=== PATIENT | female | born 1995 | race Caucasian/White ===

== ENCOUNTER 2017-03-11 20:54 | Emergency (ER) | payer MEDICAID ==
[2017-03-11 20:57] VITALS: BMI 33.6
[2017-03-11] MEDS ORDERED: Sodium Chloride 0.9% 1,000 ML IV STA (21:27)
--- NOTE | 2017-03-11 21:43 | ED PDOC ---
HPI: Abdomen History Per: Patient <Lennox Bartholomew - Last Filed: 03/11/17 23:56> <Whit Bryant - Last Filed: 03/13/17 14:13> Time Seen by Provider: 03/11/17 21:15 Chief Complaint (Nursing): Abdominal Pain Additional Complaint(s): 21 year old patient with a PMHx of Depression presents to ED with a 1 week history of abdominal pain associated with N/V/D. Patient reports that abdominal pain started last sunday and has been worsening ranulfo. Describes abdominal pain as sharp, 7/10 in intensity, localized to RLQ with radiation to epigastric region, exacerbated with lifting heavy objects and not alleviated with Ibuprofen 600mg. Diarrhea started as watery with 4-5 episodes daily but patient has been noticing millie blood, 1-2 tablespoons, in her stool. Vomit was undigested food and yellow fluid with no millie blood or /coffee ground emesis. Patient denies fever but reports feeling chills all week. Denies urinary changes , back pain, sick contacts, recent travel, or vaginal bleeding. Decreased appetite but has been tolerating diet and fluids. (Lennox Bartholomew) Supervising Attending Note <Lennox Bartholomew - Last Filed: 03/11/17 23:56> - Supervising Attending Note The Documented history was done by the: Physician Negative Cleaner, Attending Physician The documented physical exam was done by the: Physician Negative Cleaner, Attending Physician - Attestation: I have personally seen and examined this patient.: Yes I have fully participated in the care of the patient.: Yes I have reviewed all pertinent clinical information: Yes <Whit Bryant - Last Filed: 03/13/17 14:13> - Notes: Notes:: RLQ pain with signs of ruptured ovarian cyst and no appendicitis on CT. [place] better spontenously during ER stay. Stable for dc. (Whit Bryant) Past Medical History Reviewed: Historical Data, Nursing Documentation, Vital Signs - Medical History PMH: Anemia - Surgical History Surgical History: No Surg Hx Denies: Appendectomy - Family History Family History: Denies: No Known Family Hx - Living Arrangements Living Arrangements: With Family - Social History Current smoker - smoking cessation education provided: No Alcohol: < 2 Drinks/Day <Lennox Bartholomew - Last Filed: 03/11/17 23:56> <Whit Bryant - Last Filed: 03/13/17 14:13> Vital Signs: Last Vital Signs Temp 97.9 F 03/12/17 00:01 Pulse 81 03/12/17 00:01 Resp 17 03/12/17 00:01 BP 119/66 03/12/17 00:01 Pulse Ox 100 03/12/17 00:01 - Home Medications Home Medications: Ambulatory Orders Medication Instructions Recorded Nitrofurantoin Macrocrystals 100 mg PO BID #14 cap 02/25/15 [Macrobid] Ondansetron [Zofran] 4 mg PO Q8H #12 tab 02/25/15 Sertraline HCl [Zoloft] 03/02/15 Ibuprofen [Motrin Tab] 600 mg PO Q8 PRN #60 tab 03/11/17 - Allergies Allergies/Adverse Reactions: Allergies Allergy/AdvReac Type Severity Reaction Status Date / Time shrimp Allergy RASH Verified 03/11/17 20:57 Sulfa (Sulfonamide Allergy RASH Verified 03/11/17 20:57 Antibiotics) Review of Systems Constitutional: Negative for: Chills Cardiovascular: Negative for: Chest Pain, Palpitations Respiratory: Negative for: Cough Gastrointestinal: Positive for: Nausea, Vomiting, Abdominal Pain, Diarrhea, Hematochezia. Negative for: Constipation, Melena, Hematemesis, Rectal Pain Genitourinary Female: Negative for: Dysuria, Frequency Psych: Negative for: Anxiety, Depression <Lennox Bartholomew - Last Filed: 03/11/17 23:56> Physical Exam - Reviewed Vital Signs Reviewed: Yes - Physical Exam Appears: Positive for: Well, Non-toxic, No Acute Distress Skin: Positive for: Normal Color. Negative for: Diaphoresis, Pallor Neck: Positive for: Supple Cardiovascular/Chest: Positive for: Regular Rate, Rhythm Respiratory: Positive for: Normal Breath Sounds. Negative for: Accessory Muscle Use, Crackles, Wheezing Pulses-Dorsalis Pedis (L): 2+ Pulses-Dorsalis Pedis (R): 2+ Pulses-Radial (L): 2+ Pulses-Radial (R): 2+ Gastrointestinal/Abdominal: Positive for: Bowel Sounds, Soft, Tenderness ( Tenderness in RLQ, Psoas sign positive, Negative rebound tenderness). Negative for: Organomegaly, Mass, Distended, Guarding, Rebound, Hernia Back: Negative for: L CVA Tenderness, R CVA Tenderness <Lennox Bartholomew - Last Filed: 03/11/17 23:56> - Laboratory Results Result Diagrams: 03/11/17 21:48 03/11/17 21:48 - ECG O2 Sat by Pulse Oximetry: 99 <Lennox Bartholomew - Last Filed: 03/11/17 23:56> - Laboratory Results Result Diagrams: 03/11/17 21:48 03/11/17 21:48 <Whit Bryant - Last Filed: 03/13/17 14:13> Medical Decision Making <Lennox Bartholomew - Last Filed: 03/11/17 23:56> <Whit Bryant - Last Filed: 03/13/17 14:13> Medical Decision Makin21 y/o female presents to ED with 1 week hx of abdominal pain associated with n/ v and bloody diarrhea. ED Course: Morphine 4mg x1 Zofran 8mg IV x1 Protonix 40mg IV x1 IV hydration, Normal Saline CBC CMP Lipase U/A Urine FOBT Plan: Labs normal Pt's Pain resolved spontaneously Abdominal CT showed R. Ovarian cyst rupture. Reviewed results with patient. Advised to follow up with PMD and [facility] Outpatient. RX given for Ibuprofen to manage pain. ER precautions given. Patient requested documents of abdominal CT report, report was reviewed and given. (Lennox Bartholomew) Disposition - Patient ED Disposition Is Patient to be Admitted: No Discussed With Dr.: Whit Bryant Doctor Will See Patient In The: Office Counseled Patient/Family Regarding: Studies Performed, Diagnosis, Need For Followup, Rx Given - Disposition Disposition: Routine/Home Disposition Time: 23:51 <Lennox Bartholomew - Last Filed: 03/11/17 23:56> <Whit Bryant - Last Filed: 03/13/17 14:13> - Clinical Impression Clinical Impression: Ovarian cyst rupture - Disposition Condition: FAIR Prescriptions: Ibuprofen [Motrin Tab] 600 mg PO Q8 PRN #60 tab PRN Reason: Pain, Moderate (4-7) Instructions: Ovarian Cyst (ED) Forms: [employer] (Kosovan), [facility] ED School/Work Excuse
[2017-03-11 21:57] LABS: BASO # 0.1 K/uL (0.0-0.2); BASO % 0.7 % (0.0-2.0); EOS % 0.2 % (0.0-4.0); HEMATOCRIT 37.6 % (34.0-47.0); LYMPH % 19.7 % (20.0-40.0); MEAN CELL VOLUME 83.1 fl (81.0-99.0); MEAN CORPUSCULAR HEMOGLOBIN 26.4 pg (27.0-31.0); MEAN CORPUSCULAR HGB CONC 31.7 g/dL (33.0-37.0); MEAN PLATELET VOLUME 8.4 fl (7.2-11.7); MONO # 0.5 K/uL (0.0-0.8); MONO % 5.1 % (0.0-10.0); NEUT # 7.5 K/uL (1.8-7.0); NEUT % 74.3 % (50.0-75.0); RED CELL DISTRIBUTION WIDTH 13.1 % (11.5-14.5); WHITE BLOOD COUNT 10.1 K/uL (4.8-10.8)
[2017-03-11 22:10] LABS: ALB/GLOB RATIO 1.3 (1.0-2.1); ALKALINE PHOSPHATASE 92 U/L (38-126); ALT/SGPT 40 U/L (9-52); AST/SGOT 37 U/L (14-36); BILIRUBIN,TOTAL 0.9 mg/dl (0.2-1.3); BLOOD UREA NITROGEN 12 mg/dl (7-17); CALCIUM 9.3 mg/dL (8.4-10.2); CARBON DIOXIDE 24 mmol/L (22-30); CHLORIDE 105 mmol/L (98-107); GFR AFRICAN-AMERICAN > 60; GLUCOSE,RANDOM 95 mg/dL (65-105); LIPASE 64 U/L (23-300); POTASSIUM 4.6 MMOL/L (3.6-5.0); SODIUM 140 mmol/l (132-148)
[2017-03-11 22:13] LABS: PARTIAL THROMBOPLASTIN TIME 30.9 Seconds (25.6-37.1)
[2017-03-11] MEDS ORDERED: Iohexol 300 100 ML IJ ONE (22:14)
--- NOTE | 2017-03-11 23:28 | CT ---
EXAM: CT Abdomen and Pelvis With Intravenous Contrast CLINICAL HISTORY: 21 years old, female; Pain; Abdominal pain; Acute; Additional info: Rlq pain R/O appy TECHNIQUE: Axial computed tomography images of the abdomen and pelvis with intravenous contrast. All CT scans at this facility use one or more dose reduction techniques, viz.: automated exposure control; ma/kV adjustment per patient size (including targeted exams where dose is matched to indication; i.e. head); or iterative reconstruction technique. Coronal and sagittal reformatted images were created and reviewed. CONTRAST: 95 mL of omnipaque 300 administered intravenously. COMPARISON: US - OB TRANSVAGINAL 2015-03-04 12:03 FINDINGS: Lower thorax: No acute findings. ABDOMEN: Liver: No acute abnormality as visualized. No mass. Gallbladder and bile ducts: No acute abnormality as visualized. Pancreas: No acute abnormality as visualized. Spleen: No splenomegaly. Adrenals: No acute abnormality as visualized. Kidneys and ureters: No acute abnormality as visualized. No hydronephrosis. Stomach and bowel: Limited evaluation without enteric contrast. No obstruction. Appendix: No findings to suggest acute appendicitis. PELVIS: Bladder: No acute abnormality as visualized. Reproductive: Approximately 2 cm focus of increased attenuation in region of right adnexa with surrounding fluid of somewhat increased attenuation. Appearance most suggestive of a ruptured ovarian cyst with hemorrhage. Followup evaluation can be performed with ultrasound. Retroverted uterus. ABDOMEN and PELVIS: Intraperitoneal space: No free air. Bones: No acute fracture. Vasculature: No abdominal aortic aneurysm. Lymph nodes: No acute abnormality as visualized. IMPRESSION: Approximately 2 cm focus of increased attenuation in region of right adnexa with surrounding fluid of somewhat increased attenuation. Appearance most suggestive of a ruptured ovarian cyst with hemorrhage. Followup evaluation can be performed with ultrasound.
[2017-03-12 00:02] VITALS: BP 119/66; PULSE 81; RESP 17; TEMP 97.9; O2SAT 100
== END 2017-03-11 23:58 | disposition home or self-care (01) ==
LOC: H.ER 20:54
DX: N83.209 Unspecified ovarian cyst, unspecified side (principal)
CPT/HCPCS: 74177; 80053; 81025; 83690; 85025; 85610; 85730; 86850; 86900; 96361; 96374; 96375; 99283; C9113; J2405; J7040; Q9967

== ENCOUNTER 2017-07-25 21:08 | Inpatient (IN) | payer MEDICAID ==
[2017-07-25 21:09] VITALS: BMI 32.3
--- NOTE | 2017-07-25 22:41 | ED PDOC ---
HPI: Psych/Substance Abuse Time Seen by Provider: 07/25/17 21:26 Chief Complaint (Nursing): Psychiatric Evaluation History Per: Patient Additional Complaint(s): Pt. states for the past 2 weeks she's had suicidal thoughts but no plan. States that she was seen in by a Psychiatric PA today who prescribed her Fluoxetine and advised her to come to ED but she refused and wanted to go home instead. Pt' s mother states at home pt. began crying again. Pt. states she recently ended a 4 year romantic relationship. Denies HI, hallucinations. Past Medical History Reviewed: Historical Data, Nursing Documentation, Vital Signs Vital Signs: Last Vital Signs Temp 98.0 F 07/25/17 21: Pulse 88 07/25/17 21:22 Resp 16 07/25/17 21:22 BP 108/68 07/25/17 21:22 Pulse Ox 98 07/25/17 21:22 - Medical History PMH: Anemia, Depression Denies: Diabetes, Hepatitis, HIV, HTN, Chronic Kidney Disease, Seizures, Sexually Transmitted Disease - Surgical History Surgical History: Endoscopy Denies: Appendectomy - Family History Family History: States: No Known Family Hx - Immunization History Hx Tetanus Toxoid Vaccination: No Hx Influenza Vaccination: No Hx Pneumococcal Vaccination: No - Home Medications Home Medications: Ambulatory Orders Medication Instructions Recorded Methylprednisolone Acetate 20 mg IJ 07/25/17 [Depo-Medrol] - Allergies Allergies/Adverse Reactions: Allergies Allergy/AdvReac Type Severity Reaction Status Date / Time pollen extracts Allergy SHORTNESS Verified 07/25/17 21:20 OF BREATH shellfish derived Allergy ANAPHYLAXIS Verified 07/25/17 21:20 shrimp Allergy RASH Verified 07/25/17 21:20 Sulfa (Sulfonamide Allergy RASH Verified 07/25/17 21:20 Antibiotics) Review of Systems ROS Statement: Except As Marked, All Systems Reviewed And Found Negative Psych: Positive for: Depression, Suicidal ideation Physical Exam - Reviewed Nursing Documentation Reviewed: Yes Vital Signs Reviewed: Yes - Physical Exam Appears: Positive for: Well, Non-toxic, No Acute Distress Head Exam: Positive for: ATRAUMATIC, NORMAL INSPECTION, NORMOCEPHALIC Skin: Positive for: Normal Color, Warm. Negative for: Rash Eye Exam: Positive for: EOMI, Normal appearance, PERRL ENT: Positive for: Normal ENT Inspection Neck: Positive for: Normal, Painless ROM Cardiovascular/Chest: Positive for: Regular Rate, Rhythm Respiratory: Positive for: CNT, Normal Breath Sounds Gastrointestinal/Abdominal: Positive for: Normal Exam, Soft. Negative for: Tenderness Back: Positive for: Normal Inspection Extremity: Positive for: Normal ROM Neurologic/Psych: Positive for: Alert, Oriented, Mood/Affect (calm, cooperative) - Laboratory Results Result Diagrams: 07/25/17 23:13 07/25/17 23:13 - ECG O2 Sat by Pulse Oximetry: 98 - Progress ED Course And Treament: Crisis eval ordered. Pt. placed on 1:1. Pt. evaluated by [facility] rider ticket worker, who spoke with Dr. Joy and arrangements made for admission. Labs ordered. Disposition - Clinical Impression Clinical Impression: Depression - Patient ED Disposition Is Patient to be Admitted: Yes - Disposition Disposition: Routine/Home Disposition Time: 23:01 Condition: STABLE Forms: [facility] (Mongolian)
[2017-07-25 23:17] LABS: BASO # 0.1 K/uL (0.0-0.2); BASO % 0.5 % (0.0-2.0); EOS % 0.3 % (0.0-4.0); HEMOGLOBIN 11.7 g/dL (12.0-16.0); LYMPH # 2.1 K/uL (1.0-4.3); LYMPH % 18.5 % (20.0-40.0); MEAN CELL VOLUME 81.3 fl (81.0-99.0); MEAN CORPUSCULAR HGB CONC 31.9 g/dL (33.0-37.0); MEAN PLATELET VOLUME 8.4 fl (7.2-11.7); MONO # 0.5 K/uL (0.0-0.8); MONO % 4.2 % (0.0-10.0); NEUT # 8.8 K/uL (1.8-7.0); NEUT % 76.5 % (50.0-75.0); RBC 4.5 Mil/uL (3.80-5.20); RED CELL DISTRIBUTION WIDTH 14.5 % (11.5-14.5); WHITE BLOOD COUNT 11.5 K/uL (4.8-10.8)
[2017-07-25 23:27] LABS: ALB/GLOB RATIO 1.1 (1.0-2.1); ALBUMIN 4.4 g/dL (3.5-5.0); ALT/SGPT 34 U/L (9-52); AST/SGOT 21 U/L (14-36); BLOOD UREA NITROGEN 9 mg/dl (7-17); CALCIUM 9.6 mg/dL (8.4-10.2); GFR AFRICAN-AMERICAN > 60; GFR NON-AFRICAN AMERICAN > 60
[2017-07-25 23:29] LABS: SQUAMOUS EPITHIAL 13 /hpf (0-5); URINE BACTERIA RARE (<OCC); URINE BILIRUBIN NEGATIVE (NEGATIVE); URINE BLOOD NEGATIVE (NEGATIVE); URINE CLARITY CLOUDY (Clear); URINE COLOR YELLOW (YELLOW); URINE GLUCOSE (UA) NEG (Normal); URINE LEUKOCYTE ESTERASE NEG Leu/uL (Negative); URINE PROTEIN NEGATIVE (NEGATIVE); URINE UROBILINOGEN 0.2-1.0 mg/dL (0.2-1.0)
[2017-07-25 23:35] LABS: BARBITURATES, UR NEGATIVE (NEGATIVE); BENZODIAZEPINES, UR POSITIVE (NEGATIVE); OPIATES, UR NEGATIVE (NEGATIVE); PHENCYCLIDINE, UR NEGATIVE (NEGATIVE)
[2017-07-26 00:14] VITALS: O2SAT 99
[2017-07-26] MEDS ORDERED: Magnesium Hydroxide Susp 30 ml UD PO PRN (00:43)
[2017-07-26] MEDS ORDERED: Alum-Mag Hydrox-Simethicone Susp (30 mL) PO PRN (00:43)
[2017-07-26] MEDS ORDERED: DiphenhydrAMINE 50 mg/ml Inj IM PRN (00:43)
--- NOTE | 2017-07-26 01:23 | PCM.BM ---
<Carlos Krueger P - Last Filed: 07/26/17 01:21> Treatment Plan Problems - Problems identified on initial assessmt Hopelessness/Helplessness Date Initiated: 07/26/17 Time Initiated: 01:21 Assessment reference: NA Status: Active Altered Sleep Patterns Date Initiated: 07/26/17 Time Initiated: 01:21 Assessment reference: NA Status: Active Treatment assets and liabiliti Patient Assests: cooperative, educated, ADL independent, physically healthy, good support system, negotiates basic needs, cognitively intact, good interpersonal skills Patient Liabilities: relationship conflicts - Milieu Protocol Maintain good personal hygiene: daily Encourage regular showers, daily Remind patient to perform daily oral care, daily Assist patient to perform ADL's Conduct patient checks and document Observation sheet: Q15 minutes Maintain personal safety: every shift Educate patient to report safety concerns to staff, every shift Monitor environment for contraband/sharps Medication safety: Monitor for expected outcome, potential side effects: every shift, Assess barriers to learning: every shift, Assess readiness for medication education: every shift <Jone Muniz J - Last Filed: 07/27/17 16:24> Family Contact Family involvement: Family/SO is involved Family contact: Patient agrees to contact, Family has been contacted by patient Family contact name: Jairo Mcknight (Mother) - [phone] Family contacted how many times per week?: 2 - Goals for Treatment Patient goals for treatment: Pt reported she would like to feel less anxious and depressed and have her intrusive thoughts resolved. Discharge/Continuing Care - Education Needs Education Needs: Patient Medication, Patient Diagnosis/Disease Process, Patient Coping Skills, Patient Aftercare Safety Plan - Discharge Discharge Criteria: Tolerates medication w/o severe side effects, Free of Suicidal thoughts, Free of agitation, Normal sleep pattern, Ability to care for self, Reduction of target symptoms Discharge to:: Home, With Family - Additional Comments 07/27/17 16:21 Pt reported that she has been restless with bone pain. Pt spoke about numerous somatic symptoms such as pain, upset stomach. Pt reported that she would not be able to contract for safety off of the unit. Pt reported she has been experiencing Auditory Hallucinations yet had not mentioned these to intake or unit staff until this AM. Medications were explained and Dr. Lazo plans to titrate up Abilify to 5mg today and 10mg tomorrow as long as no side effects are seen. Pt remained tearful during treatment team. - Treatment Team Participation Discussed with Family/SO: No Was Patient/Family/SO present at Treatment Team Meeting: Yes <Chrystal Lazo - Last Filed: 07/31/17 13:07> - Diagnosis (1) Depression Status: Acute Interventions: psychotherapy, pharmacotherapy 07/26/17 13:42
[2017-07-26 07:37] LABS: T4 9.3 ug/dl (5.5-11.0)
--- NOTE | 2017-07-26 07:56 | CP.PCM.HP ---
History of Present Illness - History of Present Illness History of Present Illness: admitted for depression/si. states hears a voice that tells her she is not worth it. no active suicidal intentions. no medical complaints. no f/c, n/v/ d.bw and imaging noted Present on Admission - Present on Admission Any Indicators Present on Admission: No Review of Systems - Psychiatric Psychiatric: As Per HPI, Depression, Suicidal Ideation Past Patient History - Infectious Disease Hx of Infectious Diseases: None - Tetanus Immunizations Tetanus Immunization: Unknown - Past Social History Smoking Status: Never Smoked - CARDIAC Hx Cardiac Disorders: No Hx Hypertension: No - PULMONARY Hx Respiratory Disorders: No Hx Tuberculosis: No - NEUROLOGICAL Hx Neurological Disorder: No Hx Seizures: No - HEENT Hx HEENT Problems: No - RENAL Hx Chronic Kidney Disease: No - ENDOCRINE/METABOLIC Hx Endocrine Disorders: No - HEMATOLOGICAL/ONCOLOGICAL Hx Anemia: Yes Hx Human Immunodeficiency Virus (HIV): No - INTEGUMENTARY Hx Dermatological Problems: No - MUSCULOSKELETAL/RHEUMATOLOGICAL Hx Musculoskeletal Disorders: No Hx Falls: No - GASTROINTESTINAL Hx Gastrointestinal Disorders: Yes Hx Gastroesophageal Reflux: Yes - GENITOURINARY/GYNECOLOGICAL Hx Genitourinary Disorders: No Hx Sexually Transmitted Disorders: No - PSYCHIATRIC Hx Substance Use: No - SURGICAL HISTORY Hx Surgeries: No Hx Appendectomy: No Other/Comment: hx endoscopy/colonoscopy - ANESTHESIA Hx Anesthesia: Yes Hx Anesthesia Reactions: No Hx Malignant Hyperthermia: No Meds Allergies/Adverse Reactions: Allergies Allergy/AdvReac Type Severity Reaction Status Date / Time pollen extracts Allergy SHORTNESS Verified 07/25/17 21:20 OF BREATH shellfish derived Allergy ANAPHYLAXIS Verified 07/25/17 21:20 shrimp Allergy RASH Verified 07/25/17 21:20 Sulfa (Sulfonamide Allergy RASH Verified 07/25/17 21:20 Antibiotics) Physical Exam - Constitutional Appears: Well, Non-toxic, No Acute Distress - Head Exam Head Exam: ATRAUMATIC, NORMAL INSPECTION, NORMOCEPHALIC - Eye Exam Eye Exam: EOMI, Normal appearance, PERRL Pupil Exam: NORMAL ACCOMODATION, PERRL - ENT Exam ENT Exam: Mucous Membranes Moist, Normal Exam - Neck Exam Neck exam: Positive for: Normal Inspection - Respiratory Exam Respiratory Exam: Clear to Auscultation Bilateral, NORMAL BREATHING PATTERN - Cardiovascular Exam Cardiovascular Exam: REGULAR RHYTHM - GI/Abdominal Exam GI & Abdominal Exam: Normal Bowel Sounds, Soft. absent: Tenderness - Extremities Exam Extremities exam: Positive for: normal inspection - Back Exam Back exam: NORMAL INSPECTION - Neurological Exam Neurological exam: Alert, CN II-XII Intact, Normal Gait, Oriented x3, Reflexes Normal - Psychiatric Exam Psychiatric exam: Normal Affect, Normal Mood - Skin Skin Exam: Dry, Intact, Normal Color, Warm Results - Vital Signs Recent Vital Signs: Last Vital Signs Temp 98.0 F 07/26/17 00:14 Pulse 79 07/26/17 01:10 Resp 18 07/26/17 01:10 BP 117/70 07/26/17 00:14 Pulse Ox 99 07/26/17 00:13 - Labs Result Diagrams: 07/25/17 23:13 07/25/17 23:13 Labs: Laboratory Results - last 24 hr 07/25/17 07/25/17 07/25/17 23:13 23:13 23:13 WBC 11.5 H RBC 4.50 Hgb 11.7 L Hct 36.6 MCV 81.3 MCH 26.0 L MCHC 31.9 L RDW 14.5 Plt Count 297 MPV 8.4 Neut % (Auto) 76.5 H Lymph % (Auto) 18.5 L [place] % (Auto) 4.2 Eos % (Auto) 0.3 Baso % (Auto) 0.5 Neut # (Auto) 8.8 H Lymph # (Auto) 2.1 [place] # (Auto) 0.5 Eos # (Auto) 0.0 Baso # (Auto) 0.1 Sodium 141 Potassium 4.0 Chloride 106 Carbon Dioxide 20 L Anion Gap 19 BUN 9 Creatinine 0.6 L Est GFR ( Amer) > 60 Est GFR (Non-Af Amer) > 60 Random Glucose 117 H Calcium 9.6 Total Bilirubin 0.9 AST 21 ALT 34 Alkaline Phosphatase 79 Total Protein 8.3 H Albumin 4.4 Globulin 4.0 H Albumin/Globulin Ratio 1.1 Triglycerides Cholesterol LDL Cholesterol Direct HDL Cholesterol Thyroxine (T4) TSH 3rd Generation Urine Color Urine Clarity Urine pH Ur Specific [place] Urine Protein Urine Glucose (UA) Urine Ketones Urine Blood Urine Nitrate Urine Bilirubin Urine Urobilinogen Ur Leukocyte Esterase Urine RBC (Auto) Urine Microscopic WBC Ur Squamous Epith Cells Urine Bacteria Urine HCG, Qual Urine Opiates Screen Negative Urine Methadone Screen Negative Ur Barbiturates Screen Negative Ur Phencyclidine Scrn Negative Ur Amphetamines Screen Negative U Benzodiazepines Scrn Positive U Oth Cocaine Metabols Negative U Cannabinoids Screen Negative Alcohol, Quantitative < 10 07/25/17 07/26/17 07/26/17 23:13 01:15 06:30 WBC RBC Hgb Hct MCV MCH MCHC RDW Plt Count MPV Neut % (Auto) Lymph % (Auto) [place] % (Auto) Eos % (Auto) Baso % (Auto) Neut # (Auto) Lymph # (Auto) [place] # (Auto) Eos # (Auto) Baso # (Auto) Sodium Potassium Chloride Carbon Dioxide Anion Gap BUN Creatinine Est GFR ( Amer) Est GFR (Non-Af Amer) Random Glucose Calcium Total Bilirubin AST ALT Alkaline Phosphatase Total Protein Albumin Globulin Albumin/Globulin Ratio Triglycerides 100 Cholesterol 145 LDL Cholesterol Direct 86 HDL Cholesterol 33 Thyroxine (T4) 9.30 TSH 3rd Generation 1.36 Urine Color Yellow Urine Clarity Cloudy Urine pH 5.0 Ur Specific [place] 1.028 Urine Protein Negative Urine Glucose (UA) Neg Urine Ketones Negative Urine Blood Negative Urine Nitrate Negative Urine Bilirubin Negative Urine Urobilinogen 0.2-1.0 Ur Leukocyte Esterase Neg Urine RBC (Auto) 5 H Urine Microscopic WBC 7 H Ur Squamous Epith Cells 13 H Urine Bacteria Rare Urine HCG, Qual Negative Urine Opiates Screen Urine Methadone Screen Ur Barbiturates Screen Ur Phencyclidine Scrn Ur Amphetamines Screen U Benzodiazepines Scrn U Oth Cocaine Metabols U Cannabinoids Screen Alcohol, Quantitative Assessment & Plan (1) Depressed Assessment and Plan: psych meds, interventions, therapies medically cleared for psych services Status: Acute Decision To Admit - Pt Status Changed To: Hospital Disposition Of: Inpatient - Admit Certification Admit to Inpatient:: After my assessment, the patient will require hospitalization for at least two midnights. This is because of the severity of symptoms shown, intensity of services needed, and/or the medical risk in this patient being treated as an outpatient. - . Bed Request Type: Adult Psychiatry Admitting Physician: Elysia Reyna
--- NOTE | 2017-07-26 13:59 | PCM.PSYCH ---
Initial Psychiatric Evaluation - Initial Psychiatric Evaluation Type of Admission: Voluntary Legal Status: Capacity Chief Complaint (in patient's own words): I do not know how to deal with my feelings Patient's Reaction to Hospitalization: pt requested help History of Present Illness and Precipitating Events: pt is 22 ys old female with previous diagnosis of adjustment disorder with depressed mood , one previous hospitalization 2014 as she became and had conflicting emotion about the , pt reported being depressed since 7th grade as she grew up with her aunt and at 7th grade she had to move in with her mother, pt also has been exposed to bullying in [employer], never had therapy, after being discharged in 2014, she was non compliant with treatment pt currently has been depressed due to break up with boyfriend after a four years relationship, pt was having difficulty sleeping and poor appetite, on day of evaluation patient was having suicidal ideation, she was brought to ER by mother pt continues to report passive suicidal ideations without plan or intent on the unit, low energy, poor interest in any any activity denied homicidal ideation denied perceptual disturbances Current Medications: Active Medications Generic Name Dose Route Start Last Admin Trade Name Freq PRN Reason Stop Dose Admin Acetaminophen 650 mg 07/26/17 00:43 Tylenol 325mg Tab PO Q4 PRN pain level 4-7 Al Hydrox/Mg Hydrox/Simethicone 30 ml 07/26/17 00:43 Maalox Plus 30 Ml PO Q4 PRN Dyspepsia Aripiprazole 5 mg 07/27/17 09:00 Abilify PO DAILY [facility] Diphenhydramine HCl 50 mg 07/26/17 00:43 Benadryl IM Q6 PRN Extrapyramidal S/S Unable PO Diphenhydramine HCl 50 mg 07/26/17 00:43 Benadryl PO Q6 PRN Extrapyramidal Symptoms Diphenhydramine HCl 50 mg 07/26/17 00:45 07/26/17 01:33 Benadryl PO 50 mg HS PRN Administration Sleep Haloperidol 5 mg 07/26/17 00:43 Haldol PO Q4 PRN Agitation Haloperidol Lactate 5 mg 07/26/17 00:43 Haldol IM Q4 PRN Agitation, Unable to Take PO Lorazepam 2 mg 07/26/17 00:43 Ativan IM Q4 PRN Anxiety/Agitation,Unable PO Lorazepam 1 mg 07/26/17 12:44 Ativan PO TID PRN Anxiety Magnesium Hydroxide 30 ml 07/26/17 00:43 Milk Of Magnesia PO HS PRN Constipation Trazodone HCl 50 mg 07/26/17 22:00 Desyrel PO HS [facility] Past Psychiatric History - Past Psychiatric History Explanation of prior treatment: one hospitalization 2014 for depression and suicidal ideation pt has history of superficially cutting herself on the thigh last was in 2014 History of ETOH/Drug Use: denied History of Family Illness: denied Pertinent Medical Hx (Current Medical&Sleep Prob, Allergies): Allergies Allergy/AdvReac Type Severity Reaction Status Date / Time pollen extracts Allergy SHORTNESS Verified 07/25/17 21:20 OF BREATH shellfish derived Allergy ANAPHYLAXIS Verified 07/25/17 21:20 shrimp Allergy RASH Verified 07/25/17 21:20 Sulfa (Sulfonamide Allergy RASH Verified 07/25/17 21:20 Antibiotics) Methylprednisolone Acetate [Depo-Medrol] 20 mg IJ 07/25/17 Mental Status Examination - Personal Presentation Personal Presentation: Looks stated age - Affect Affect: Constricted, Depressed - Motor Activity Motor Activity: Psychomotor Retardation - Reliability in Providing Information Reliability in Providing Information: Poor, due to altered mood - Speech Speech: Relevant - Mood Mood: Depressed, Anxious - Formal Thought Process Formal Thought Process: Circumstantial - Hallucinations/Delusions Additional comments: pt denied perceptual disturbances, non elicited - Obsessions/Compulsions Obsessions: No Compulsions: No - Cognitive Functions Orientation: Person, Place Sensorium: Alert Attention/Concentration: Attentive Judgement: Imparied, as evidence by: Poor judgement - Risk Risk: Suicidal, Diminished functioning - Strength & Assets Inventory Strength & Assets Inventory: Education, Employment history - Limitations Additional comments: non compliance DSM 5 DX - DSM 5 DSM 5 Diagnosis: borderline personality disorder major depression - Recommended/Plan of Treatment Treatment Recommendations and Plan of Treatment: start abilify 5mg for poor impulse control and depression CBT supportive therapy monitor pt for psychopharmacological effects and side effect profile Prognosis: guarded
--- NOTE | 2017-07-26 22:28 | CARD ---
APPROVED REPORT EKG Measurement Heart [id number] <Conclusion> Normal sinus rhythm Right axis deviation Possible Right ventricular hypertrophy Abnormal ECG
--- NOTE | 2017-07-27 13:29 | PCM.PYCHPN ---
Psychiatric Progress Note - Psychiatric Progress Note Patient seen today, length of contact: pt evaluated discussed with team chart reviewed Patient Chief Complaint: I feel pain in my whole body, my depression is painful and making me feel empty Problems Identified/Issues Discussed: pt evaluated with treatment team presenting with depressed mood and affect, speech soft and slow, partial eye contact, multiple somatic complaints patient reported that when depressed she always suffers from body aches, pt reported feeling sad and empty due to the recent break up with boyfriend CBT provided discussed with patient possible coping skills with current feelings , and the need to verbalize her feelings rather than acting out on them pt continues to have no interest in any activity, low energy and anhedonia reported passive suicidal ideation, wishing she does not have to go through the pain, she denied any active intent or plan pt reported experiencing non command auditory hallucinations, putting her down , discussed increasing dose of abilify no reported side effects of medications, denied homicidal ideation Medical Problems: one hospitalization 2014 for depression and suicidal ideation pt has history of superficially cutting herself on the thigh last was in 2014 DSM 5 Symptoms Update: major depression borderline personality disorder Medication Change: Yes (start cymbalta) Medical Record Reviewed: Yes Mental Status Examination - Cognitive Function Orientation: Person, Place, Situation Attention: Poor Concentration: Poor Association: WNL Fund of Knowledge: WNL Decription of patient's judgement and insights: partial insight, poor impulse control - Mood Mood: Depressed, Anxious - Affect Affect: Constricted, Depressed - Speech Speech: Soft - Formal Thought Process Formal Thought Process: Circumstantial Psychotic Thoughts and Behaviors: pt reported non command auditory hallucinations - Suicidal Ideation Suicidal Ideation: No - Homicidal Ideation Homicidal Ideation: No Goal/Treatment Plan - Goal/Treatment Plan Need for Continued Stay: Severe depression anxiety, Discharge may exacerbated symptoms Progress Toward Problem(s) and Goals/Treatment Plan: increase abilify 5mg BID for poor impulse control and depression start cymbalta 20mg and uptitrate gradually neurontin 100mg tid prn for anxiety CBT supportive therapy monitor pt for psychopharmacological effects and side effect profile
--- NOTE | 2017-07-28 09:41 | PCM.PYCHPN ---
Psychiatric Progress Note - Psychiatric Progress Note Patient seen today, length of contact: Patient evaluated, chart reviewed Patient Chief Complaint: "I'm so anxious" Problems Identified/Issues Discussed: Patient reports that she continues to have faint intermittent AH, but reports that they as less frequent than yesterday. She denies current VH/SI/HI. She reports that she feels very anxious. We discussed continued titration of Cymbalta for treatment of depression and anxiety. Medication Change: Yes (Increase Cymbalta) Medical Record Reviewed: Yes Consults ordered or reviewed: Medicine consult Mental Status Examination - Cognitive Function Orientation: Person, Place, Situation, Time Memory: Intact Attention: Poor Concentration: Poor Association: WNL Fund of Knowledge: WNL Decription of patient's judgement and insights: Poor I/J - Mood Mood: Depressed, Anxious - Affect Affect: Constricted, Depressed - Speech Speech: Soft - Formal Thought Process Formal Thought Process: Hallucinations, Circumstantial Psychotic Thoughts and Behaviors: Reports intermittent, faint AH - Suicidal Ideation Suicidal Ideation: No - Homicidal Ideation Homicidal Ideation: No Goal/Treatment Plan - Goal/Treatment Plan Need for Continued Stay: Severe depression anxiety, Discharge may exacerbated symptoms Progress Toward Problem(s) and Goals/Treatment Plan: Major Depressive Disorder w/ Psychotic Features; Borderline Personality Disorder -Increase Cymbalta to 20 mg PO BID -Continue Abilify 10 mg PO Daily -Continue Trazodone 50 mg PO HS -Individual and group therapy -Medicine consult -Psychoeducation Estimated Date of D/C: 07/31/17
--- NOTE | 2017-07-29 10:17 | PCM.PYCHPN ---
Psychiatric Progress Note - Psychiatric Progress Note Patient seen today, length of contact: Patient evaluated, chart reviewed Patient Chief Complaint: "I'm anxious" Problems Identified/Issues Discussed: Patient reports nausea and diarrhea. She does not want to modify her medications at this time due to acute GI complaints. She continues to reports anxiety and depression but denies acute AH. Medication Change: No Medical Record Reviewed: Yes Consults ordered or reviewed: Medicine consult Mental Status Examination - Cognitive Function Orientation: Person, Place, Situation, Time Memory: Intact Attention: WNL Concentration: WNL Association: WNL Fund of Knowledge: WN Decription of patient's judgement and insights: Improving I/J - Mood Mood: Depressed, Anxious - Affect Affect: Constricted, Depressed - Speech Speech: Soft - Formal Thought Process Formal Thought Process: No Impairment Psychotic Thoughts and Behaviors: Denies current AH - Suicidal Ideation Suicidal Ideation: No - Homicidal Ideation Homicidal Ideation: No Goal/Treatment Plan - Goal/Treatment Plan Need for Continued Stay: Severe depression anxiety, Discharge may exacerbated symptoms Progress Toward Problem(s) and Goals/Treatment Plan: Major Depressive Disorder w/ Psychotic Features; Borderline Personality Disorder -Continue Cymbalta 20 mg PO BID -Continue Abilify 10 mg PO Daily -Continue Trazodone 50 mg PO HS -Individual and group therapy -Medicine consult- will call for follow-up of acute GI complaints -Psychoeducation Estimated Date of D/C: 07/31/17
[2017-07-29 13:33] LABS: BASO # 0.1 K/uL (0.0-0.2); BASO % 0.7 % (0.0-2.0); EOS % 0.1 % (0.0-4.0); HEMOGLOBIN 12.5 g/dL (12.0-16.0); LYMPH # 1.5 K/uL (1.0-4.3); LYMPH % 11.5 % (20.0-40.0); MEAN CELL VOLUME 81.8 fl (81.0-99.0); MEAN CORPUSCULAR HEMOGLOBIN 26.3 pg (27.0-31.0); MEAN CORPUSCULAR HGB CONC 32.2 g/dL (33.0-37.0); MEAN PLATELET VOLUME 8.4 fl (7.2-11.7); MONO # 0.5 K/uL (0.0-0.8); MONO % 4.3 % (0.0-10.0); NEUT # 10.6 K/uL (1.8-7.0); NEUT % 83.4 % (50.0-75.0); RBC 4.76 Mil/uL (3.80-5.20); RED CELL DISTRIBUTION WIDTH 14.7 % (11.5-14.5); WHITE BLOOD COUNT 12.7 K/uL (4.8-10.8)
[2017-07-29] MEDS ORDERED: Oxycodone/Acetaminophen 5/325 mg Tab PO PRN (14:21)
[2017-07-29 14:24] LABS: ALBUMIN 4.6 g/dL (3.5-5.0); ALT/SGPT 24 U/L (9-52); AMYLASE 74 U/L (30-110); AST/SGOT 36 U/L (14-36); BLOOD UREA NITROGEN 11 mg/dl (7-17); CALCIUM 9.9 mg/dL (8.4-10.2); GFR AFRICAN-AMERICAN > 60; GFR NON-AFRICAN AMERICAN > 60; LIPASE 47 U/L (23-300)
[2017-07-29] MEDS ORDERED: Barium Sulfate Susp 2.1% w/v, 2.0% w/w 450 mL Bottle PO ONE ×3 (14:45→15:30)
[2017-07-29 15:37] LABS: SQUAMOUS EPITHIAL 4 /hpf (0-5); URINE BACTERIA RARE (<OCC); URINE BILIRUBIN NEGATIVE (NEGATIVE); URINE BLOOD NEGATIVE (NEGATIVE); URINE CLARITY CLOUDY (Clear); URINE COLOR YELLOW (YELLOW); URINE GLUCOSE (UA) NEG (Normal); URINE LEUKOCYTE ESTERASE LARGE Leu/uL (Negative); URINE PROTEIN 30 mg/dL (NEGATIVE); URINE UROBILINOGEN 0.2-1.0 mg/dL (0.2-1.0)
--- NOTE | 2017-07-29 23:50 | CT ---
EXAM: CT Abdomen and Pelvis Without Intravenous Contrast CLINICAL HISTORY: 22 years old, female; Pain; Abdominal pain; Epigastric; Additional info: R/O abdominal pain TECHNIQUE: Axial computed tomography images of the abdomen and pelvis without intravenous contrast. All CT scans at this facility use one or more dose reduction techniques, viz.: automated exposure control; ma/kV adjustment per patient size (including targeted exams where dose is matched to indication; i.e. head); or iterative reconstruction technique. Coronal and sagittal reformatted images were created and reviewed. COMPARISON: CT - ABD PELVIS IV CONTRAST ONLY 2017-03-11 22:18 FINDINGS: Limitations: Lack of intravenous contrast. Lung bases: No acute findings. ABDOMEN: Liver: Unremarkable. Gallbladder and bile ducts: No calcified stones. No ductal dilation. Pancreas: Unremarkable. No ductal dilation. Spleen: No splenomegaly. Adrenals: No mass. Kidneys and ureters: No renal calculi. No hydronephrosis. Stomach and bowel: No definite mural thickening. No obstruction. PELVIS: Appendix: Normal caliber. No inflammation. Bladder: Unremarkable. No stones. Reproductive: Unremarkable as visualized. ABDOMEN and PELVIS: Intraperitoneal space: No significant fluid collection. No free air. Bones/joints: No acute fracture. Soft tissues: Small umbilical hernia containing fat. Vasculature: Unremarkable. No aneurysm. Lymph nodes: No pathologically enlarged lymph nodes. IMPRESSION: 1. No definite acute intraabdominal abnormality. 2. Incidental/non-acute findings are described above.
--- NOTE | 2017-07-30 07:57 | CP.PCM.PN ---
Subjective - Date & Time of Evaluation Date of Evaluation: 07/30/17 Time of Evaluation: 07:55 - Subjective Subjective: pt c/o abd pain and intermittent n/v. no f/c. ct abd/pelvis wnl. ua w/ large leuks. pt c/o dysuria. urine c/s pending Objective - Vital Signs/Intake and Output Vital Signs (last 24 hours): Temp Pulse Resp BP Pulse Ox 96.8 F L 93 H 18 125/76 99 07/29/17 17:00 07/29/17 17:00 07/29/17 17:00 07/29/17 17:00 07/26/17 00:13 - Medications Medications: Current Medications Acetaminophen (Tylenol 325mg Tab) 650 mg PO Q4 PRN PRN Reason: pain level 4-7 Al Hydrox/Mg Hydrox/Simethicone (Maalox Plus 30 Ml) 30 ml PO Q4 PRN PRN Reason: Dyspepsia Last Admin: 07/30/17 03:31 Dose: 30 ml Aripiprazole (Abilify) 10 mg PO DAILY [facility] Last Admin: 07/29/17 09:28 Dose: 10 mg Diphenhydramine HCl (Benadryl) 50 mg IM Q6 PRN PRN Reason: Extrapyramidal S/S Unable PO Diphenhydramine HCl (Benadryl) 50 mg PO Q6 PRN PRN Reason: Extrapyramidal Symptoms Diphenhydramine HCl (Benadryl) 50 mg PO HS PRN PRN Reason: Sleep Last Admin: 07/26/17 01:33 Dose: 50 mg Duloxetine HCl (Cymbalta) 20 mg PO BID [facility] Last Admin: 07/29/17 18:59 Dose: Not Given Famotidine (Pepcid) 20 mg PO DAILY [facility] Last Admin: 07/29/17 09:28 Dose: 20 mg Gabapentin (Neurontin) 100 mg PO TID PRN PRN Reason: Anxiety Last Admin: 07/28/17 17:46 Dose: 100 mg Haloperidol (Haldol) 5 mg PO Q4 PRN PRN Reason: Agitation Haloperidol Lactate (Haldol) 5 mg IM Q4 PRN PRN Reason: Agitation, Unable to Take PO Loperamide HCl (Imodium) 2 mg PO QID PRN PRN Reason: Diarrhea Lorazepam (Ativan) 2 mg IM Q4 PRN PRN Reason: Anxiety/Agitation,Unable PO Lorazepam (Ativan) 1 mg PO TID PRN PRN Reason: Anxiety Last Admin: 07/26/17 18:56 Dose: 1 mg Magnesium Hydroxide (Milk Of Magnesia) 30 ml PO HS PRN PRN Reason: Constipation Ondansetron HCl (Zofran Odt) 4 mg PO Q8H PRN PRN Reason: Nausea/Vomiting Last Admin: 07/29/17 13:08 Dose: 4 mg Trazodone HCl (Desyrel) 50 mg PO HS [facility] Last Admin: 07/29/17 21:35 Dose: 50 mg Trimethoprim/Sulfamethoxazole (Bactrim Ds Tab) 1 tab PO Q12 [facility] PRN Reason: Protocol - Labs Labs: 07/29/17 13:18 07/29/17 13:18 - Constitutional Appears: Well, Non-toxic, No Acute Distress - Head Exam Head Exam: ATRAUMATIC, NORMAL INSPECTION, NORMOCEPHALIC - Eye Exam Eye Exam: EOMI, Normal appearance, PERRL Pupil Exam: NORMAL ACCOMODATION, PERRL - ENT Exam ENT Exam: Mucous Membranes Moist, Normal Exam - Neck Exam Neck Exam: Full ROM, Normal Inspection. absent: Lymphadenopathy - Respiratory Exam Respiratory Exam: Clear to Ausculation Bilateral, NORMAL BREATHING PATTERN - Cardiovascular Exam Cardiovascular Exam: REGULAR RHYTHM, RRR, +S1, +S2. absent: Murmur - GI/Abdominal Exam GI & Abdominal Exam: Soft, Normal Bowel Sounds. absent: Tenderness - Extremities Exam Extremities Exam: Full ROM, Normal Capillary Refill, Normal Inspection. absent : Joint Swelling, Pedal Edema - Back Exam Back Exam: NORMAL INSPECTION - Neurological Exam Neurological Exam: Alert, Awake, CN II-XII Intact, Normal Gait, Oriented x3 - Psychiatric Exam Psychiatric exam: Normal Affect, Normal Mood - Skin Skin Exam: Dry, Intact, Normal Color, Warm Assessment and Plan (1) Depressed Assessment & Plan: cont meds interventions therapies Status: Acute (2) UTI (urinary tract infection) Assessment & Plan: bactrim f/u b/s hydration Status: Acute (3) Abdominal pain Assessment & Plan: ?? r/t uti f/u urine c/s start bactrim pain management ct negative Status: Acute
[2017-07-30] MEDS ORDERED: Tmp-Smz 800 mg-160 mg DS Tab PO SCH (09:00)
[2017-07-30 09:07] VITALS: RESP 20
--- NOTE | 2017-07-30 16:22 | PCM.PYCHPN ---
Psychiatric Progress Note - Psychiatric Progress Note Patient seen today, length of contact: Patient evaluated, chart reviewed Patient Chief Complaint: I am very anxious and I am hearing voices telling me to hurt myself Problems Identified/Issues Discussed: pt evaluated , presenting with anxious mood and affect,she reported decreased sleep with early insomnia , patient also has multiple somatic complaints, reporting body pains, somatic delusions indicating she has umbilical hernia, pt appears splitting among staff, reporting nurses told her she has umbilical hernia, pt through the day becoming more anxious and reported experiencing auditory hallucinations, command in type asking her to hurt herself, reported having urges to cut herself, discussed with patient starting neurontin as standing dose for anxiety and risperidone for command hallucinations brief CBT provided, treatment plan discussed with mother upon patient consent Medical Problems: one hospitalization 2014 for depression and suicidal ideation pt has history of superficially cutting herself on the thigh last was in 2014 DSM 5 Symptoms Update: borderline personality disorder major depression Medication Change: Yes (start risperidone ) Medical Record Reviewed: Yes Mental Status Examination - Cognitive Function Orientation: Person, Place, Situation, Time Memory: Intact Attention: WNL Concentration: WNL Association: WNL Fund of Knowledge: WNL - Mood Mood: Depressed, Anxious - Affect Affect: Constricted, Depressed - Speech Speech: Soft - Formal Thought Process Formal Thought Process: No Impairment Psychotic Thoughts and Behaviors: pt reported command auditory hallucinations to hurt self - Suicidal Ideation Suicidal Ideation: Yes - Homicidal Ideation Homicidal Ideation: No Goal/Treatment Plan - Goal/Treatment Plan Need for Continued Stay: Severe depression anxiety, Discharge may exacerbated symptoms Progress Toward Problem(s) and Goals/Treatment Plan: discontinue abilify start risperidone 1mg qhs cymbalta 40mg neurontin 100mg tid CBT supportive therapy monitor pt for psychopharmacological effects and side effect profile Estimated Date of D/C: 08/03/17
[2017-07-30] MEDS: Risperidone M tab 1 MG PO SCH (21:06)
--- NOTE | 2017-07-31 13:26 | PCM.PYCHPN ---
Psychiatric Progress Note - Psychiatric Progress Note Patient seen today, length of contact: Patient evaluated, chart reviewed Patient Chief Complaint: I have pains all over my body and I feel dizzy, the voices are gone and I do not want to hurt myself any more, I think I heard voices because I was angry Problems Identified/Issues Discussed: pt evaluated , seen in bed , continues to be dysphoric, reporting sad mood , pt reported feeling very tired and that all her bones hurting ,presenting with multiple somatic complaints, including stuffiness, dizziness and sore throat, patient reporting that her depression always presented with pains and aches, discussed with patient psychosomatic theory and the possible relation of her somatic symptoms to her emotional condition pt reported complete clearence of the auditory hallucinations she had yesterday , denied any current persceptual disturbances or any thoughts to hurt herself relating her suicidal thoughts yesterday to her feeling of lack of attention from staff discussed with patient her current diagnosis of Borderline personality disorder , addressed with her the need to work through therapy on expressing her emotions rather than acting on them, the need to develop coping skills rather than acting out , patient receptive to receiving DBT on discharge she denied any current suicidal or homicidal ideations, agreed on the increase in cymbalta to 60mg Medical Problems: one hospitalization 2015 for depression and suicidal ideation pt has history of superficially cutting herself on the thigh last was in 2014 DSM 5 Symptoms Update: major depression borderline personality disorder Medication Change: Yes (increase cymbalta) Medical Record Reviewed: Yes Mental Status Examination - Cognitive Function Orientation: Person, Place, Situation, Time Memory: Intact Attention: WNL Concentration: WNL Association: WNL Fund of Knowledge: WNL - Mood Mood: Depressed, Anxious - Affect Affect: Constricted, Depressed - Speech Speech: Soft - Formal Thought Process Formal Thought Process: Circumstantial Psychotic Thoughts and Behaviors: pt rdenied any current perceptual disturbances, denied any thoughts of self harm - Suicidal Ideation Suicidal Ideation: No - Homicidal Ideation Homicidal Ideation: No Goal/Treatment Plan - Goal/Treatment Plan Need for Continued Stay: Severe depression anxiety, Discharge may exacerbated symptoms Progress Toward Problem(s) and Goals/Treatment Plan: risperidone 1mg qhs cymbalta 60mg discontinue neurontin CBT supportive therapy monitor pt for psychopharmacological effects and side effect profile Estimated Date of D/C: 08/03/17
[2017-07-31] MEDS: Risperidone M tab 1 MG PO SCH (21:08)
--- NOTE | 2017-08-01 12:55 | PCM.PYCHPN ---
Psychiatric Progress Note - Psychiatric Progress Note Patient seen today, length of contact: Patient evaluated, chart reviewed Patient Chief Complaint: I am feeling better no pain today and the articles you gave me helps to address my feelings Problems Identified/Issues Discussed: pt evaluated in her room, reported feeling better physically with less pain, also reported better sleep last night which makes her less anxious, patient stated after discussing with her the diagnosis of Border line personality disorder yesterday and reading articles about it, she was able to self reflect and think about coping skills with her depression,discussed with patient importance of developing her own plan of how to cope with stressors, she was able to verbalize possibility of talking to therapist and if unavailable , to a friend pt presenting with brighter affect, stated less depressed , indicated clearing off of the auditory hallucinations and denied any current perceptual disturbances denied side effects of medications, deneid any current thoughts of self harm or suicidal or homicidal ideation Medical Problems: one hospitalization 2014 for depression and suicidal ideation pt has history of superficially cutting herself on the thigh last was in 2014 DSM 5 Symptoms Update: major depression borderline personality disorder Medication Change: Yes (increase cymbalta) Medical Record Reviewed: Yes Mental Status Examination - Cognitive Function Orientation: Person, Place, Situation, Time Memory: Intact Attention: WNL Concentration: WNL Association: WNL Fund of Knowledge: WNL - Mood Mood: Depressed, Anxious - Affect Affect: Constricted, Depressed - Speech Speech: Soft - Formal Thought Process Formal Thought Process: Circumstantial Psychotic Thoughts and Behaviors: pt denied any current perceptual disturbances, denied any thoughts of self harm - Suicidal Ideation Suicidal Ideation: No - Homicidal Ideation Homicidal Ideation: No Goal/Treatment Plan - Goal/Treatment Plan Need for Continued Stay: Severe depression anxiety, Discharge may exacerbated symptoms Progress Toward Problem(s) and Goals/Treatment Plan: risperidone 1mg qhs cymbalta 60mg CBT supportive therapy monitor pt for psychopharmacological effects and side effect profile Estimated Date of D/C: 08/03/17
[2017-08-01] MEDS: Risperidone M tab 1 MG PO SCH (21:04)
[2017-08-02 09:32] VITALS: BP 121/80; PULSE 116; TEMP 98.1
--- NOTE | 2017-08-02 10:32 | PCM.PYCHDC ---
Mental Status Examination - Mental Status Examination Orientation: Person, Place, Situation Memory: Intact Mood: Neutral Affect: Broad Speech: Appropriate Attention: WNL Concentration: WNL Association: WNL Fund of Knowledge: WNL Formal Thought Process: No Impairment Description of patient's judgement and insight: partial insight, and fair judgment Psychotic Thoughts and Behaviors: pt denied any current perceptual disturbances, denied any thoughts of self harm Suicidal Ideation: No Current Homicidal Ideation?: No Discharge Summary - Discharge Note Reason for Hospitalization: pt requested help pt is 22 ys old female with previous diagnosis of adjustment disorder with depressed mood , one previous hospitalization 2014 as she became and had conflicting emotion about the , pt reported being depressed since 7th grade as she grew up with her aunt and at 7th grade she had to move in with her mother, pt also has been exposed to bullying in [employer] school, never had therapy, after being discharged in 2014, she was non compliant with treatment pt currently has been depressed due to break up with boyfriend after a four years relationship, pt was having difficulty sleeping and poor appetite, on day of evaluation patient was having suicidal ideation, she was brought to ER by mother pt continues to report passive suicidal ideation without plan or intent on the unit, low energy, poor interest in any any activity denied homicidal ideation denied perceptual disturbances Consultations:: List each consultation separately and include: 1. Reason for request. 2. Findings. 3. Follow-up Summary of Hospital Course include:: 1. Description of specific treatment plan utilized for patients during their course of treatmen. 2. Summarize the time- course for resolution of acute symptoms and/or regressed behaviors. 3. Describe issues identified and worked on during hospitalization. 4. Describe medication utilized. 5. Describe medical problems identified and treated. 6. Reassessment of suicide risk Summary of Hospital Course: pt on admission , presented with depressed mood and affect, initially had thoughts of self harm and had to be placed on 1:1 precautions for safety pt depression was in the form of multiple somatic symptoms including bodyaches and pain, cymbalta was started and uptitrated to 60mg , with positive effect on depressed mood and body pain pt had initial micro psychotic episodes with voices putting her down commanding her to self harm by superficially cutting her thighs patient was placed on risperidone 1mg qhs, with positive effect on the auditory hallucinations discussed with patient the diagnosis of border line personality disorder and she was presented with articles about diagnosis treatment plan was twice discussed with mother upon pt consent and she was in agreenment with plan and also with discharge plan Brief DBT was provided to pt and she was able to verbalize coping skills with stressors rather than acting out including music , art and calling therapist as needed on discharge pt mental status was stable, denied any current suicidal or homicidal ideation denied any thoughts of self harm, denied perceptual disturbances, non elicited , no reported side effects of medications - Diagnosis (1) Depression Current Visit: Yes Status: Acute - Final Diagnosis (DSM 5) Condition upon Discharge: STABLE DSM 5: major depression recurrent severe with psychotic features borderline personality disorder Disposition: HOME/ ROUTINE Follow-up Treatment Plan: DBT at [facility] outpatient psychotherapy and pharmacotherapy Prescriptions/Medication Reconciliation: DULoxetine [Cymbalta] 60 mg PO DAILY 30 Days #30 ecc risperiDONE [RisperDAL Tab] 1 mg PO HS 30 Days #30 tab traZODone [Desyrel] 50 mg PO HS 30 Days #30 tab - Antipsychotic Medications Pt discharged on 2 or more routine antipsychotic medications: No
== END 2017-08-02 13:39 | disposition home or self-care (01) | DRG 430 ==
LOC: H.ER 21:08 → H.PSYCH 23:53 → H.ER 07-26 00:22
PROVIDERS: ADMIT Psychiatry & Neurology Psychiatry; ATTEND Psychiatry & Neurology Psychiatry
PROC: GZHZZZZ Group Psychotherapy (ICD-10-PCS; principal; 2017-07-25)
PROC: GZ58ZZZ Individual Psychotherapy, Cognitive-Behavioral (ICD-10-PCS; 2017-07-25)
PROC: GZ56ZZZ Individual Psychotherapy, Supportive (ICD-10-PCS; 2017-07-25)
DX: F33.3 Major depressive disorder, recurrent, severe with psychotic symptoms (principal); N39.0 Urinary tract infection, site not specified; F60.3 Borderline personality disorder; R45.851 Suicidal ideations; Z91.013 Allergy to seafood; Z91.5 Personal history of self-harm

== ENCOUNTER 2017-10-09 16:22 | Emergency (ER) | payer MEDICAID ==
[2017-10-09 16:37] VITALS: BMI 31.8
[2017-10-09 16:39] VITALS: O2SAT 100
[2017-10-09] MEDS ORDERED: Sodium Chloride 0.9% 1,000 ML IV STA (16:52)
--- NOTE | 2017-10-09 17:45 | ED PDOC ---
HPI: Abdomen Time Seen by Provider: 10/09/17 16:38 Chief Complaint (Nursing): Female Genitourinary Chief Complaint (Provider): Diffuce abdominal pain, worse in the RLQ History Per: Patient History/Exam Limitations: no limitations Onset/Duration Of Symptoms: Days Outside of [place] travel?: No Current Symptoms Are (Timing): Still Present Severity: Moderate Location Of Pain/Discomfort: Diffuse, RLQ Associated Symptoms: Nausea, Vomiting, Diarrhea (Watery, green ). denies: Fever , Chills Additional Complaint(s): 22 yo female with no medical problems sent by PMD for evaluation of RLQ pain for 3 days. PT states the pain is diffuse but worse in the RLQ. Pt has been hvaing N/V with watery green diarrhea. Past Medical History Vital Signs: Last Vital Signs Temp 97.8 F 10/09/17 16:37 Pulse 73 10/09/17 16:37 Resp 19 10/09/17 16:37 BP 114/71 10/09/17 16:37 Pulse Ox 100 10/09/17 18:29 - Medical History PMH: Anemia, Depression Denies: Diabetes, Hepatitis, HIV, HTN, Chronic Kidney Disease, Seizures, Sexually Transmitted Disease - Surgical History Surgical History: Endoscopy Denies: Appendectomy - Family History Family History: States: No Known Family Hx - Immunization History Hx Tetanus Toxoid Vaccination: No Hx Influenza Vaccination: No Hx Pneumococcal Vaccination: No - Home Medications Home Medications: Ambulatory Orders Medication Instructions Recorded Methylprednisolone Acetate 20 mg IJ 07/25/17 [Depo-Medrol] DULoxetine [Cymbalta] 60 mg PO DAILY 30 Days #30 ecc 08/02/17 Famotidine [Pepcid] 20 mg PO DAILY tab 08/02/17 risperiDONE [RisperDAL Tab] 1 mg PO HS 30 Days #30 tab 08/02/17 traZODone [Desyrel] 50 mg PO HS 30 Days #30 tab 08/02/17 - Allergies Allergies/Adverse Reactions: Allergies Allergy/AdvReac Type Severity Reaction Status Date / Time pollen extracts Allergy SHORTNESS Verified 07/25/17 21:20 OF BREATH shellfish derived Allergy ANAPHYLAXIS Verified 07/25/17 21:20 shrimp Allergy RASH Verified 07/25/17 21:20 Sulfa (Sulfonamide Allergy RASH Verified 07/25/17 21:20 Antibiotics) - Laboratory Results Result Diagrams: 10/09/17 18:09 10/09/17 18:09 - ECG O2 Sat by Pulse Oximetry: 100 Medical Decision Making Medical Decision Making: Endorsed to Ric CASIANO-C pending CT scan. Disposition - Clinical Impression Clinical Impression: Abdominal pain - Patient ED Disposition Is Patient to be Admitted: No Counseled Patient/Family Regarding: Diagnosis, Need For Followup, Rx Given - Disposition Disposition: Routine/Home Disposition Time: 20:00 Condition: STABLE Forms: [employer] (Chinese)
[2017-10-09] MEDS ORDERED: Sodium Chloride 0.9% 50 ML IV ONE (18:11)
[2017-10-09] MEDS ORDERED: Iohexol 300 100 ML IJ ONE (18:11)
[2017-10-09 18:16] LABS: BASO # 0.1 K/uL (0.0-0.2); BASO % 0.7 % (0.0-2.0); EOS % 0.3 % (0.0-4.0); LYMPH # 2.6 K/uL (1.0-4.3); LYMPH % 23.7 % (20.0-40.0); MEAN CELL VOLUME 83.6 fl (81.0-99.0); MEAN CORPUSCULAR HEMOGLOBIN 26.8 pg (27.0-31.0); MEAN CORPUSCULAR HGB CONC 32.1 g/dL (33.0-37.0); MEAN PLATELET VOLUME 8.9 fl (7.2-11.7); MONO # 0.4 K/uL (0.0-0.8); MONO % 3.9 % (0.0-10.0); NEUT # 7.9 K/uL (1.8-7.0); NEUT % 71.4 % (50.0-75.0); RBC 4.11 Mil/uL (3.80-5.20); RED CELL DISTRIBUTION WIDTH 12.7 % (11.5-14.5); WHITE BLOOD COUNT 11.1 K/uL (4.8-10.8)
[2017-10-09 18:37] LABS: SQUAMOUS EPITHIAL 3 /hpf (0-5); URINE BACTERIA OCC (<OCC); URINE BILIRUBIN NEGATIVE (NEGATIVE); URINE BLOOD SMALL (NEGATIVE); URINE CLARITY SLIGHTY-CLOUDY (Clear); URINE COLOR YELLOW (YELLOW); URINE GLUCOSE (UA) NEG (Normal); URINE LEUKOCYTE ESTERASE MOD Leu/uL (Negative); URINE PROTEIN NEGATIVE (NEGATIVE); URINE UROBILINOGEN 0.2-1.0 mg/dL (0.2-1.0)
[2017-10-09 19:05] LABS: CALCIUM 9.3 mg/dL (8.4-10.2); GFR AFRICAN-AMERICAN > 60; GFR NON-AFRICAN AMERICAN > 60
[2017-10-09 19:20] LABS: ALB/GLOB RATIO 1.2 (1.0-2.1); ALBUMIN 4.6 g/dL (3.5-5.0); ALT/SGPT 19 U/L (9-52); AST/SGOT 54 U/L (14-36); BLOOD UREA NITROGEN 8 mg/dl (7-17)
--- NOTE | 2017-10-09 21:03 | ED PDOC ---
- Laboratory Results Result Diagrams: 10/09/17 18:09 10/09/17 18:09 - ECG O2 Sat by Pulse Oximetry: 100 - Progress ED Course And Treament: case endorsed to speech writer from Sarah RON pending CT, re-eval EXAM: CT Abdomen and Pelvis With Intravenous Contrast EXAM DATE/TIME: 10/09/2017 4:52 PM CLINICAL HISTORY: 22 years old, female; Pain; Abdominal pain; Localized; Right lower quadrant (rlq ); Additional info: Rlq pain TECHNIQUE: Axial computed tomography images of the abdomen and pelvis with intravenous contrast. All CT scans at this facility use at least one of these dose optimization techniques: automated exposure control; mA and/or kV adjustment per patient size (includes targeted exams where dose is matched to clinical indication); or iterative reconstruction. CONTRAST: 95 ml of [id number] administered intravenously. COMPARISON: CT - ABD PELVIS PO CONTRAST ONLY 2017-07-29 21:23 FINDINGS: Lower thorax: No acute findings. ABDOMEN: Liver: Normal. No mass. Gallbladder and bile ducts: Normal. No calcified stones. No ductal dilation. Pancreas: Normal. No ductal dilation. Spleen: Normal. No splenomegaly. Adrenals: Normal. No mass. Kidneys and ureters: Normal. No hydronephrosis. Stomach and bowel: Normal. No obstruction. No mucosal thickening. Appendix: No evidence of appendicitis. PELVIS: Bladder: Unremarkable as visualized. Reproductive: Unremarkable as visualized. ABDOMEN and PELVIS: Intraperitoneal space: Question trace pelvic fluid No free air. No significant fluid collection. Bones/joints: No acute fracture. No dislocation. Soft tissues: Unremarkable. Vasculature: Normal. No abdominal aortic aneurysm. Lymph nodes: Normal. No enlarged lymph nodes. IMPRESSION: No acute findings. Question trace pelvic fluid TV u/s ordered EXAM: US Pelvis, Transvaginal CLINICAL HISTORY: 22 years old, female; Signs and symptoms; Menstruation abnormalities; Irregular menstruation; Additional info: Right pelvic pain TECHNIQUE: Real-time transvaginal pelvic ultrasound (complete) with image documentation. Transvaginal imaging was used for better evaluation of the endometrium and adnexa. COMPARISON: US - OB TRANSVAGINAL 2015-03-04 12:03 FINDINGS: Uterus/cervix: Unremarkable. No myometrial mass. Endometrial stripe measures 8 mm. Right ovary: Unremarkable. No mass. Normal blood flow. Left ovary: Unremarkable. No mass. Normal blood flow. Free fluid: Small amount of simple free fluid in the pelvis which is likely physiologic fluid. IMPRESSION: Normal pelvic ultrasound. On re-eval, patient states she is feeling better. Tolerating PO. Patient educated on findings, discharged with rx Macrobid (dose given in ED), bentyl, zofran Advised fluids, bland diet Follow up PMD 2-3 days. Return precautions given Disposition - Clinical Impression Clinical Impression: Abdominal pain, UTI (urinary tract infection), Gastroenteritis - POA Present On Arrival: None - Disposition Disposition: Routine/Home Disposition Time: 22:11 Condition: IMPROVED Prescriptions: Dicyclomine [Bentyl] 20 mg PO TID PRN #15 tab PRN Reason: Pain, Mild (1-3) Nitrofurantoin Macrocrystals [Macrobid] 100 mg PO BID #13 cap Ondansetron ODT [Zofran ODT] 4 mg PO Q8 PRN #10 odt PRN Reason: Nausea/Vomiting Instructions: Urinary Tract Infections in Adults, Viral Gastroenteritis, Acute Abdomen (Belly Pain), Adult (DC) Forms: [employer] (Yoruba)
[2017-10-09 22:29] VITALS: BP 126/79; PULSE 67; RESP 16; TEMP 98.5
--- NOTE | 2017-10-10 08:35 | CT ---
Date of service: 10/09/2017 PROCEDURE: CT Abdomen and Pelvis with contrast HISTORY: RLQ pain COMPARISON: None. TECHNIQUE: Contrast dose: 95 mL Omnipaque 300 Radiation dose: Total exam DLP = 677 mGy-cm. This CT exam was performed using one or more of the following dose reduction techniques: Automated exposure control, adjustment of the mA and/or kV according to patient size, and/or use of iterative reconstruction technique. FINDINGS: LOWER THORAX: Trace subpleural thread-like discoid atelectasis and/or thread-like fibrosis. Otherwise negative LIVER: Unremarkable. No gross lesion or ductal dilatation. GALLBLADDER AND BILE DUCTS: Unremarkable. PANCREAS: Unremarkable. No gross lesion or ductal dilatation. SPLEEN: Unremarkable. ADRENALS: Unremarkable. No mass. KIDNEYS AND URETERS: Unremarkable. No hydronephrosis. No solid mass. VASCULATURE: Unremarkable. No aortic aneurysm. BOWEL: Unremarkable. No obstruction. No gross mural thickening. APPENDIX: The appendix is not visualized with certainty. No pericecal inflammatory change to suggest acute appendicitis. PERITONEUM: Unremarkable. No free fluid. No free air. LYMPH NODES: Unremarkable. No enlarged lymph nodes. BLADDER: Unremarkable. REPRODUCTIVE: Uterus is retroverted -developmental variant and the central intrauterine cavity hyperdense appearance likely relates this 21 year old patient's phase of menses A benign physiologic appearing right follicular cyst approximately 1.7 cm and minimal free fluid in the pelvis compatible with physiologic changes are noted. BONES: No acute fracture. OTHER FINDINGS: None. IMPRESSION: Uterus is retroverted -developmental variant and the central intrauterine cavity hyperdense appearance likely relates this 21 year old patient's phase of menses A benign physiologic appearing right follicular cyst approximately 1.7 cm and minimal free fluid in the pelvis compatible with physiologic changes are noted. The appendix is not visualized with certainty. No pericecal inflammatory change to suggest acute appendicitis. The reproductive findings in this impression are not mentioned in the V [facility] report -these may be clinically relevant yet there are believed normal physiological status. In this regard, the V [facility] report is otherwise concordant with these results
--- NOTE | 2017-10-10 12:45 | US ---
Date of service: 10/09/2017 HISTORY: right pelvic pain. LMP 08/15/2017. Irregular vaginal bleeding since then COMPARISON: CT of the abdomen and pelvis 10/09/2017 TECHNIQUE: Transvaginal FINDINGS: UTERUS: Measures 6.3 x 3.7 x 4.2 cm. Retroverted. . No fibroid or other mass lesion seen. ENDOMETRIUM: Measures 8 mm in diameter. Unremarkable. CERVIX: No cervical abnormality identified. RIGHT OVARY: Measures 2.8 x 1.4 x 2.1 cm. No solid mass. Normal flow. Normal appearing physiological follicles noted LEFT OVARY: Measures 2.0 x 1.0 x 2.0 cm. No solid mass. Normal flow. Normal appearing physiological follicles noted FREE FLUID: Small amount of free fluid in the cul-de-sac compatible with physiologic change. OTHER FINDINGS: None. IMPRESSION: Retroverted uterus without uterine mass or suspicious endometrial thickening. No intrauterine cavity masses seen. CT findings are compatible with normal physiological changes which are suggested on this exam as well. Minimal free fluid in the cul-de-sac compatible with physiologic change. Bilateral small ovarian physiologic appearing follicles none larger than 2 cm in size. Concordant results (preliminary interpretation) provided by [facility].
== END 2017-10-09 22:29 | disposition home or self-care (01) ==
LOC: H.ER 16:22
DX: K52.9 Noninfective gastroenteritis and colitis, unspecified (principal); N39.0 Urinary tract infection, site not specified; R10.31 Right lower quadrant pain; F32.9 Major depressive disorder, single episode, unspecified
CPT/HCPCS: 74177; 76830; 80053; 81003; 81025; 85025; 87040; 87086; 96374; 99285; J2270; J7030; Q9967

== ENCOUNTER 2017-11-02 20:28 | Emergency (ER) | payer MEDICAID ==
[2017-11-02 20:29] VITALS: BMI 31.8
[2017-11-02 21:00] VITALS: RESP 16; TEMP 98.6
--- NOTE | 2017-11-02 22:51 | ED PDOC ---
HPI: Female Pain Time Seen by Provider: 11/02/17 22:01 Chief Complaint (Nursing): Female Genitourinary Chief Complaint (Provider): Female Genitourinary History Per: Patient History/Exam Limitations: no limitations Onset/Duration Of Symptoms: Days (x3 months) Additional Complaint(s): Patient is 22 y/o female who presents to the ED complaining of vaginal bleeding , daily, for the past x3 months. Patient reports that some days its worse than others. She also states she has associated lower abdominal pain. Patient saw her Slurry Plant Operator regarding bleeding and said she was switched from the Depo shot to OCP about one and half months ago and was advised bleeding would improve, but she has seen no change in bleeding. She followed up with her Slurry Plant Operator again who told her to continue OCP for another and see if there are any changes. Patient is now half way through the second month and still sees no change thus prompting ED visit. Patient reports feeling weakness and dizziness and has a history of anemia as a child. She denies chest pain, shortness of breath, nausea, vomiting , fever. Past Medical History Reviewed: Historical Data, Nursing Documentation, Vital Signs Vital Signs: Last Vital Signs Temp 98.6 F 11/02/17 21:00 Pulse 94 H 11/02/17 21:00 Resp 16 11/02/17 21:00 BP 110/71 11/02/17 21:00 Pulse Ox 97 11/02/17 21:00 - Medical History PMH: Anemia, Depression Denies: Diabetes, Hepatitis, HIV, HTN, Chronic Kidney Disease, Seizures, Sexually Transmitted Disease - Surgical History Surgical History: Endoscopy Denies: Appendectomy - Family History Family History: States: Unknown Family Hx - Immunization History Hx Tetanus Toxoid Vaccination: No Hx Influenza Vaccination: No Hx Pneumococcal Vaccination: No - Home Medications Home Medications: Ambulatory Orders Medication Instructions Recorded Methylprednisolone Acetate 20 mg IJ 07/25/17 [Depo-Medrol] DULoxetine [Cymbalta] 60 mg PO DAILY 30 Days #30 ecc 08/02/17 Famotidine [Pepcid] 20 mg PO DAILY tab 08/02/17 risperiDONE [RisperDAL Tab] 1 mg PO HS 30 Days #30 tab 08/02/17 traZODone [Desyrel] 50 mg PO HS 30 Days #30 tab 08/02/17 Dicyclomine [Bentyl] 20 mg PO TID PRN #15 tab 10/09/17 Nitrofurantoin Macrocrystals 100 mg PO BID #13 cap 10/09/17 [Macrobid] Ondansetron ODT [Zofran ODT] 4 mg PO Q8 PRN #10 odt 10/09/17 Ibuprofen [Motrin Tab] 800 mg PO TID PRN #20 tab 11/03/17 - Allergies Allergies/Adverse Reactions: Allergies Allergy/AdvReac Type Severity Reaction Status Date / Time pollen extracts Allergy SHORTNESS Verified 07/25/17 21:20 OF BREATH shellfish derived Allergy ANAPHYLAXIS Verified 07/25/17 21:20 shrimp Allergy RASH Verified 07/25/17 21:20 Sulfa (Sulfonamide Allergy RASH Verified 07/25/17 21:20 Antibiotics) Review of Systems ROS Statement: Except As Marked, All Systems Reviewed And Found Negative Constitutional: Negative for: Fever Cardiovascular: Negative for: Chest Pain Respiratory: Negative for: Shortness of Breath Gastrointestinal: Positive for: Abdominal Pain. Negative for: Nausea, Vomiting Genitourinary Female: Positive for: Vaginal Bleeding Neurological: Positive for: Weakness, Dizziness Physical Exam - Reviewed Nursing Documentation Reviewed: Yes Vital Signs Reviewed: Yes - Physical Exam Comments: GENERAL APPEARANCE: Patient is awake, alert, oriented x 3, in no painful distress. SKIN: Warm, dry; (-) cyanosis. EYES: (-) conjunctival pallor, (-) scleral icterus. ENMT: Mucous membranes moist. NECK: (-) tenderness, (-) stiffness, (-) lymphadenopathy. CHEST AND RESPIRATORY: (-) rales, (-) rhonchi, (-) wheezes; breath sounds equal bilaterally. HEART AND CARDIOVASCULAR: (-) irregularity; (-) murmur, (-) gallop. ABDOMEN AND GI: (-) distention. Bowel sounds active; (-) tenderness. (-) guarding, (-) rebound, (-) palpable masses, (-) CVA tenderness. EXTREMITIES: (-) deformity, (-) edema, (+) distal pulses. NEURO AND PSYCH: Mental status as above; (-) focal findings. - Laboratory Results Result Diagrams: 11/02/17 23:40 11/02/17 23:40 - ECG O2 Sat by Pulse Oximetry: 97 (RA) Pulse Ox Interpretation: Normal Medical Decision Making Medical Decision Making: Time: 22:50 Impression: vaginal bleeding Initial Plan: - IV - NS bolus - Labs On re-evaluation, patient reports no abdominal pain. On exam, patient remains AAOx3, in no acute distress. Abdomen soft, non-tender. Lab results reviewed : 10.9 Diagnostic results d/w the patient in great detail. Based on history, exam and diagnostic results, plan will be for outpatient follow up. Patient instructed to follow-up with hunting and fishing guide in 1-2 days without fail. Advised to take medication as prescribed, continue OCP. Return to the emergency room at any time for any new or worsening symptoms. Patient states he fully agrees with and understands discharge instructions. States that he agrees with the plan and disposition. Verbalized and repeated discharge instructions and plan. I have given the patient opportunity to ask any additional questions. Disposition - Clinical Impression Clinical Impression: DUB (dysfunctional uterine bleeding) - Patient ED Disposition Is Patient to be Admitted: No Counseled Patient/Family Regarding: Studies Performed, Diagnosis, Need For Followup - Disposition Disposition: Routine/Home Disposition Time: 01:30 Condition: STABLE Additional Instructions: Thank you for letting us take care of you today. You were treated for DUB. The emergency medical care you received today was directed towards the acute presenting symptoms. If you were prescribed any medication, please fill it and give as directed. It may take several days for your symptoms to resolve. Return to the Emergency Department at any time if symptoms worsen, do not improve, or if any other problems arise. Please contact your hunting and fishing guide doctor in 2 days for re-evaluation and follow up. Bring any paperwork you were given at discharge with you along with any medications to your follow up visit. Our treatment cannot replace ongoing medical care by a primary care provider (PCP) outside of the emergency department. Thank you for allowing the [facility] team to be part of your care today. Prescriptions: Ibuprofen [Motrin Tab] 800 mg PO TID PRN #20 tab PRN Reason: Other Instructions: Heavy Periods Forms: [employer] (Portuguese), [employer] ED School/Work Excuse - PA / SENIOR STAFF PSYCHOLOGIST / Resident Statement /DO has reviewed & agrees with the documentation as recorded.
[2017-11-02] MEDS ORDERED: Sodium Chloride 0.9% 1,000 ML IV STA (23:09)
[2017-11-02 23:58] LABS: BASO # 0.1 K/uL (0.0-0.2); EOS % 0.3 % (0.0-4.0); HEMOGLOBIN 10.9 g/dL (12.0-16.0); LYMPH # 3.1 K/uL (1.0-4.3); LYMPH % 30.3 % (20.0-40.0); MEAN CELL VOLUME 83.3 fl (81.0-99.0); MEAN CORPUSCULAR HEMOGLOBIN 27.2 pg (27.0-31.0); MEAN CORPUSCULAR HGB CONC 32.7 g/dL (33.0-37.0); MEAN PLATELET VOLUME 8.9 fl (7.2-11.7); MONO # 0.8 K/uL (0.0-0.8); MONO % 7.6 % (0.0-10.0); NEUT # 6.2 K/uL (1.8-7.0); NEUT % 60.8 % (50.0-75.0); RBC 3.99 Mil/uL (3.80-5.20); RED CELL DISTRIBUTION WIDTH 13.5 % (11.5-14.5); WHITE BLOOD COUNT 10.2 K/uL (4.8-10.8)
[2017-11-03 00:08] LABS: ALB/GLOB RATIO 1.3 (1.0-2.1); ALBUMIN 4.4 g/dL (3.5-5.0); ALT/SGPT 27 U/L (9-52); AST/SGOT 36 U/L (14-36); BLOOD UREA NITROGEN 12 mg/dl (7-17); CALCIUM 9.3 mg/dL (8.4-10.2); GFR AFRICAN-AMERICAN > 60; GFR NON-AFRICAN AMERICAN > 60
[2017-11-03 02:56] VITALS: BP 108/68; PULSE 82
[2017-11-03 03:05] VITALS: O2SAT 97
== END 2017-11-03 01:41 | disposition home or self-care (01) ==
LOC: H.ER 20:28
DX: N93.8 Other specified abnormal uterine and vaginal bleeding (principal); D64.9 Anemia, unspecified; F32.9 Major depressive disorder, single episode, unspecified
CPT/HCPCS: 80053; 81025; 85025; 96374; 99284; J1885; J7030